=== PATIENT | female | born 1955 | race Caucasian/White ===

== ENCOUNTER 2018-07-19 10:08 | Day surgery (SDC) | payer OTHER ==
[2018-07-14 13:00] VITALS: BMI 31.8
[2018-07-19] MEDS ORDERED: METOPROLOL TARTRATE 5 MG/5 ML VIAL ONE (12:56)
[2018-07-19 13:44] VITALS: PULSE 83
[2018-07-19 13:54] VITALS: BP 142/80; TEMP 98
--- NOTE | 2018-07-24 16:32 | PATH ---
Surgical Pathology Report Patient Name: MIAN TSAI [facility]. Rec. #: [id number] /Age/Gender: 1955 (Age: 62) / F Account: [id number] [facility] Taken: 07/19/2018 Received: 07/19/2018 Reported: 07/24/2018 Physicians: Ella Hooker M.D. Specimen(s) Received A: ILEOCECAL VALVE B: RIGHT COLON C: TRANSVERSE COLON D: DESCENDING COLON E: DESCENDING COLON F: BX RECTUM Clinical History Abdominal pain, diarrhea Postoperative diagnosis: Diverticulosis, hemorrhoids, colon polyp Final Diagnosis A. ILEOCECAL VALVE, BIOPSY: COLONIC MUCOSA WITH PROMINENT LYMPHOID AGGREGATE B. COLON, RIGHT, BIOPSY: COLONIC MUCOSA WITH SMALL LYMPHOID AGGREGATE. C. TRANSVERSE COLON, BIOPSY: COLONIC MUCOSA WITHOUT SIGNIFICANT PATHOLOGIC FINDINGS. D. DESCENDING COLON, BIOPSY: TUBULAR ADENOMA. E. DESCENDING COLON, BIOPSY: COLONIC MUCOSA WITHOUT SIGNIFICANT PATHOLOGIC FINDINGS. F. RECTUM, BIOPSY: COLONIC MUCOSA WITH SMALL LYMPHOID AGGREGATE AND SUPERFICIAL HYPERPLASTIC FEATURES. Electronically Signed Ella Long M.D. Gross Description A. Received in formalin, labeled "#1 biopsy ileocecal valve" are 2 segov[place], irregular portions of soft tissue measuring 0.1 and 0.4 cm. in greatest dimension. The specimens are submitted in toto in one cassette. B. Received in formalin, labeled "#2 biopsy right colon" are 2 segov[place], irregular portions of soft tissue averaging 0.6 cm. in greatest dimension. The specimens are submitted in toto in one cassette. C. Received in formalin, labeled "#3 biopsy transverse colon" are 3 segov[place], irregular portions of soft tissue ranging from 0.1-0.3 cm. in greatest dimension. The specimens are submitted in toto in one cassette. D. Received in formalin, labeled "#4 polyp descending colon" is a segovia, irregular portion of soft tissue measuring 0.1 cm. in greatest dimension. The specimen is submitted in toto in one cassette. E. Received in formalin, labeled "#5 biopsy descending colon" are 2 segovia, irregular portions of soft tissue measuring 0.5 and 0.7 cm. in greatest dimension. The specimens are submitted in toto in one cassette. F. Received in formalin, labeled "#6 biopsy rectum" is a segovia, irregular portion of soft tissue measuring 0.3 cm. in greatest dimension. The specimen is submitted in toto in one cassette. 07/21/201807/21/2018
== END 2018-07-19 13:54 | disposition home or self-care (01) ==
LOC: FASU-ENDO 10:08
PROVIDERS: ATTEND Internal Medicine Gastroenterology
PROC: 0DBL8ZX Excision of Transverse Colon, Via Natural or Artificial Opening Endoscopic, Diagnostic (ICD-10-PCS; 2018-07-19)
PROC: 0DBP8ZX Excision of Rectum, Via Natural or Artificial Opening Endoscopic, Diagnostic (ICD-10-PCS; 2018-07-19)
PROC: 0DBC8ZX Excision of Ileocecal Valve, Via Natural or Artificial Opening Endoscopic, Diagnostic (ICD-10-PCS; 2018-07-19)
PROC: 0DBM8ZX Excision of Descending Colon, Via Natural or Artificial Opening Endoscopic, Diagnostic (ICD-10-PCS; 2018-07-19)
PROC: 0DBK8ZX Excision of Ascending Colon, Via Natural or Artificial Opening Endoscopic, Diagnostic (ICD-10-PCS; principal; 2018-07-19 11:30)
DX: R19.7 Diarrhea, unspecified (principal); K63.89 Other specified diseases of intestine; K57.30 Diverticulosis of large intestine without perforation or abscess without bleeding; K64.1 Second degree hemorrhoids; D12.4 Benign neoplasm of descending colon; I12.0 Hypertensive chronic kidney disease with stage 5 chronic kidney disease or end stage renal disease; N18.6 End stage renal disease; Z99.2 Dependence on renal dialysis; Z94.0 Kidney transplant status; M19.90 Unspecified osteoarthritis, unspecified site; M10.9 Gout, unspecified; E89.0 Postprocedural hypothyroidism; D63.8 Anemia in other chronic diseases classified elsewhere
CPT/HCPCS: 82962; 88305-TC